=== PATIENT | female | born 1990 | race Caucasian/White ===

== ENCOUNTER 2017-08-08 13:07 | Emergency (ER) | payer MEDICAID, OTHER ==
[~2017-08-08] VITALS: Ht 165.1 cm; Wt 112.4 kg
[~2017-08-08 13:07] MED LIST: FERR-31 PO; PREN-39 PO
[2017-08-08 13:09] VITALS: Ht 165.1 cm; Wt 112.4 kg
[2017-08-08] MEDS ORDERED: ONDANSETRON (ODT) 4 MG TAB ODT STA (14:44)
[2017-08-08] MEDS ORDERED: IBUPROFEN 800 MG TAB PO ONE (15:00)
--- NOTE | 2017-08-08 15:38 | ERD ---
ER Documentation Chief Complaint Chief Complaint fever/chills and diarrhea x 1 week HPI This is a 27year-old female who presents to the emergency department today complaining of fever and chills, cough, nasal congestion for the past week. States that she has tried many [id number]-gdl-vudqlbg medications and just cannot get rid of it. States that she is most concerned about the cough but also had one bout of vomiting and a few bouts of loose stools today. ROS All systems reviewed and are negative except as per history of present illness. Medications Home Meds Active Scripts Benzonatate* (Tessalon Perle*) 100 Mg Capsule, 100 MG PO Q8H Y for COUGH for 5 Days, CAP Prov:PROGIOVANNY VELA PA-C 08/08/17 Fluticasone Propionate (Flonase Allergy Relief) 9.9 Ml [place].susp, 2 SPRAY NASAL DAILY, #1 BOTTLE TO EACH NOSTRIL Prov:GIOVANNY HAAS PA-C 08/08/17 Ondansetron Hcl* (Zofran*) 4 Mg Tablet, 4 MG PO Q6H for NAUSEA AND/OR VOMITING, #30 TAB Prov:GIOVANNY HAAS PA-C 08/08/17 Ibuprofen* (Motrin*) 600 Mg Tab, 600 MG PO Q6, #30 TAB Prov:GIOVANNY HAAS PA-C 08/08/17 Acetaminophen* (Tylophen*) 500 Mg Capsule, 1 CAP PO Q6H Y for PAIN AND OR ELEVATED TEMP, #30 CAP Prov:GIOVANNY HAAS PA-C 08/08/17 Azithromycin* (Zithromax*) 250 Mg Tablet, 250 MG PO .FernandaPACK DIRECTED, #6 TAB TAKE 500 MG (2 TABS) THE FIRST DAY THEN 250 MG (1 TAB) DAYS 2-5 Prov:GIOVANNY HAAS PA-C 08/08/17 Reported Medications Ferrous Sulfate (Iron Supplement) 1 Tab Tablet, 1 TAB PO, TAB 09/18/15 Vits W-Ca,Fe,Fa(<1MG) ( Vitamins) 1 Tab Tablet, 1 TAB PO DAILY 08/07/15 Allergies Allergies: Coded Allergies: No Known Drug Allergies (Verified Allergy, Unknown, 08/08/17) PMhx/Soc Medical and Surgical Hx: pt denies Medical Hx History of Surgery: Yes () Hx Alcohol Use: No Hx Substance Use: No Smoking Status: Current every day smoker Physical Exam Vitals Vital Signs Date Time Temp Pulse Resp B/P Pulse Ox O2 Delivery O2 Flow Rate FiO2 08/08/17 13:09 101.0 4 18 132/77 98 Physical Exam Const: NAD Head: Atraumatic Eyes: Normal Conjunctiva ENT: TMs normal. Nose no drainage. Throat erythema no exudate no vesicles Neck: Full range of motion..~ No meningismus. Resp: Breath sounds bilaterally in all lung reyes. Cardio: Regular rate and rhythm, no murmurs Abd: Soft, non tender, non distended. Normal bowel sounds Skin: No petechiae or rashes Back: No midline or flank tenderness Ext: No cyanosis, or edema Neur: Awake and alert Psych: Normal Mood and Affect Results 24 hrs Current Medications Medications (Trade) Dose Ordered Sig/Brooks Route PRN Reason Start Time Stop Time Status Last Admin Dose Admin Ondansetron HCl (Zofran Odt) 4 mg ONCE STAT ODT 08/08/17 14:44 08/08/17 14:45 DC 08/08/17 14:49 Ibuprofen (Motrin) 800 mg ONCE ONCE PO 08/08/17 15:00 08/08/17 15:01 DC 08/08/17 14:49 RUN DATE: 08/08/17 [facility] PAGE 1 RUN TIME: [id number] [place] [address] Maurizio Herr M.D. [employer] RUFINO#: [id number] Name: GUNJAN YAP Age/Sex: 27/F Attend Dr: MEIR BENAVIDEZ MD Acct: [id number] MR# : [id number] : 1990 Location: FT Admit: 08/08/17 Specimen: [id number] Status: Complete [place]ito: 08/08/17-1499 Rcvd: 08/08-151 Source: AMANDA Saab Descrip: Procedure Result Microbiology INFLUENZA A & B BY EIA Final INFLU A&B BY EIA INFLUENZA A NEGATIVE (Ref Range Neg) INFLUENZA B NEGATIVE (Ref Range Neg) ................................................................................ ............ Flags: Critical Hi = *H Critical Lo = *L Microbiology Abnormal = * Abnormal Hi = H Abnormal Lo = L Blood Bank Abnormal = * Susceptability Flags: S = Sensitive R = Resistant I = Intermediate END OF REPORT DIAGNOSTIC IMAGING REPORT Patient: GUNJAN YAP : 1990 Age: 27 Sex: F MR #: [id number] DOS: 08/08/17 0000 Ordering MD: GIOVANNY HAAS PA-C Location: [facility] Room/Bed: PROCEDURE: XR Chest. CLINICAL INDICATION: Fever, cough TECHNIQUE: Single frontal view of the chest was obtained COMPARISON: None FINDINGS: The heart and mediastinum are within normal limits. There is a patchy left mid lung infiltrate. There is no pleural effusion or pneumothorax. RPTAT: AA IMPRESSION: Patchy left mid lung infiltrate. .Vasquez Pierce MD, MD Date Time Electronically viewed and signed by .Vasquez Pierce MD, on 08/08/2017 15: 51 .S/ CC: GIOVANNY HAAS PA-C Procedures/MDM This is a 27-year-old female who presents to the emergency department today with multiple complaints mostly URI symptoms. Patient indicates she has had this cough and fever for a week. On physical exam patient does have coarse breath sounds bilaterally in all lung reyes although she is had an oxygen saturation 98% she was febrile at 101 here in the emergency department. Given patient's symptoms I did obtain a chest x-ray and influenza swab Influenza A and B is negative Chest x ray shows a patchy left midlung infiltrate. Symptoms at this time is consistent with pneumonia. Low suspicion for PE, abscess, pleural effusion, pneumothorax. Low suspicion for retropharyngeal abscess, peritonsillar abscess. Patient was given Motrin and Zofran here in the emergency department. I will give her a prescription for azithromycin, Tylenol, Motrin, , Flonase, Zofran for home. At this time the patient is stable for discharge and outpatient management. Patient should follow up with their PCP in the next 1-2 days. They may return to the emergency department sooner for any persistent or worsening of symptoms. Patient understood and agreed with the plan. Departure Diagnosis: Primary Impression: Pneumonia Pneumonia type: due to unspecified organism Laterality: left Lung location : unspecified part of lung Qualified Code: J18.9 - Pneumonia of left lung due to infectious organism, unspecified part of lung Condition: GIOVANNY Jean Baptiste PA-C Aug 08, 2017 15:38
--- NOTE | 2017-08-08 15:51 | RADRPT ---
PROCEDURE: XR Chest. CLINICAL INDICATION: Fever, cough TECHNIQUE: Single frontal view of the chest was obtained COMPARISON: None FINDINGS: The heart and mediastinum are within normal limits. There is a patchy left mid lung infiltrate. There is no pleural effusion or pneumothorax. RPTAT: AA IMPRESSION: Patchy left mid lung infiltrate. .Vasquez Pierce MD, MD Date Time Electronically viewed and signed by .Vasquez Pierce MD, MD on 08/08/2017 15:51 .S/
[2017-08-08] MEDS ORDERED: IBUP-1542 PO (16:00)
[2017-08-08] MEDS ORDERED: AZIT250T94 PO (16:00)
[2017-08-08] MEDS ORDERED: ACET500C5 PO (16:00)
[2017-08-08] MEDS ORDERED: FLUT9.9S NASAL (16:01)
[2017-08-08] MEDS ORDERED: ONDA4TAB8 PO (16:01)
[2017-08-08] MEDS ORDERED: BENZ100C70 PO (16:02)
--- NOTE | 2017-08-11 14:34 | EN ---
Date/Time of Note Date/Time of Note DATE: 08/11/17 TIME: 14:33 ER Progress Note I placed a call to the patient today ans she reported that she was feeling significantly better and that her fevers are gone. She states she has 1 day left of her medication and that she is following up with her primary care doctor in 2 days. GIOVANNY HAAS PA-C Aug 11, 2017 14:34
== END 2017-08-08 16:10 | disposition home or self-care (01) ==
LOC: FTE 13:07
DX: J18.9 Pneumonia, unspecified organism (principal); F17.210 Nicotine dependence, cigarettes, uncomplicated
CPT/HCPCS: 71010; 87400; Z7502; Z7610